=== PATIENT | male | born 2005 | race Caucasian/White ===

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

== ENCOUNTER 2025-05-10 06:31 | Emergency (ER) | payer OTHER, SELFPAY ==
[2025-05-10 06:34] VITALS: BP 118/88; PULSE 67; RESP 24; TEMP 36.4; O2SAT 100; BMI 23.6
--- OUTSIDE RECORDS SUMMARY | 2025-05-10 06:35 | XMS_ITS | Patient Health Record ---
Author Organization [facility] Address [address] [place] [address] Care Team Providers Care Lithographic Etcher Name Role Phone Case Miranda Primary Care Provider Allergies No Known Allergies Reason For Referral No Information Medications Medication SIG (Take, Route, Frequency, Duration) Notes Start Date End Date Status Zofran 4 MG Tablet 1 tablet Orally Q4-6 hours; Duration: 30 day(s) 10/11/2022 Active Promethazine HCl 25 MG Tablet 1 tablet as needed Orally every 12 hrs Active Pantoprazole Sodium 40 MG Tablet Delayed Release 1 tablet Orally Once a day; Duration: 90 days 09/17/2022 Active Meclizine HCl 25 MG Capsule as directed Orally Active Social History Tobacco Use: Social History Observation Description Date Details (start date - stop date) Never Smoker NA - NA Social History Drugs/Alcohol: Social Info Question Answer Notes Alcohol Screen (Audit-C) Did you have a drink containing alcohol in the past year? No Points 0 Interpretation Negative Tobacco Use: Social Info Question Answer Notes xTobacco Use/Smoking Are you a nonsmoker Problems Problem Type SNOMED Code ICD Code Onset Dates Problem Status W/U Status Risk Notes Problem CSG - Chronic superficial gastritis (871277650) Chronic superficial gastritis without bleeding (K29.30) Active confirmed Problem Nausea and vomiting (65934262) Nausea with vomiting, unspecified (R11.2) Active confirmed Problem Diarrhea (08120269) Diarrhea, unspecified (R19.7) Active confirmed Plan Of Treatment No Information Insurance Providers Payer Name Payer Address Payer Phone Subscriber Number Group Number Insured Name Patient Relationship to Insured Coverage Start Date Coverage End Date [place] Medicaid [address] [place] [address] [id number] Ailin Yesseniademar Self - patient is the insured Medical (General) History Medical History History ICD Code Fatigue R53.83 Pharyngitis J02.9 Neck pain M54.2 Back pain M54.9 Suicidal ideations R45.851 Abdominal pain R10.9 Depression F32.9
--- OUTSIDE RECORDS SUMMARY | 2025-05-10 06:35 | XMS_ITS | Clinical Summary ---
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 No 10/24/2022 Food Insecurity Answer Date Recorded Social/Environmental Concerns No concerns Transportation Needs Answer Date Record ed Social/Environmental Concerns No concerns Housing Stability Answer Date Recorded Social/Environmental Concerns No concerns Utility Needs Answer Date Recorded Social/Environmental Concerns No concerns Sex and Gender Information Value Date Recorded Sex Assigned at Not on file Legal Sex Male 1:44 PM CDT Gender Identity Not on file Sexual Orientation Not on file Last Filed Vital Signs Vital Sign Reading Time Taken Comments Blood Pressure 148/80 10/25/2022 3:00 PM CDT Pulse 68 10/25/2022 3:00 PM CDT Temperature 36.1 C (97 F) 10/25/2022 3:00 PM CDT Respiratory Rate 16 10/25/2022 3:00 PM CDT Oxygen Saturation 99% 10/25/2022 3:00 PM CDT Inhaled Oxygen Concentration - - Weight 63 kg (139 lb) 10/24/2022 9:42 PM CDT Height 172.7 cm (5' 8 ) 10/24/2022 9:42 PM CDT Body Mass Index 21.13 10/24/2022 9:42 PM CDT Body Mass Index Percentile 46.26% 10/24/2022 9:4 2 PM CDT Growth Chart: CDC (Boys, 2-2 0 Years) Plan of Treatment Health Maintenance Due Date Last Done Comments CHLAMYDIA SCREENING (ANNUAL) 11-24 YEARS 2016 HPV VACCINES (1 - Male 3-dose series) 2020 DTAP/TDAP/TD VACCINES (1 - Tdap) 2024 HEPATITIS B VACCINES (1 of 3 - 19+ 3-dose series) 07/05 INFLUENZA VACCINE (#1) 2025 Medical Devices Implanted Type Area Handbag Framer Device Identifier Shelf Expiration Date Model / Serial / Lot Sterilizer Machine Operator Ligamax Endo Multi Clip 5mm [id number] - [id number] Implanted:Qty: 1 on 10/25/2022 by Dino Ramos MD at [facility] Clip N/A: Abdomen [employer] [id number] 08/04/2027 [id number] / / [id number] Insurance [facility] MEDICAID [facility] MEDICAID Advance Directives For more information, please contact: [phone] * Full Code (Latest Code Status on File) Date Activated Date Inactivated Comments 10/25/2022 8:06 AM 10/25/2022 8:18 PM * Full Code Date Activated Date Inactivated Comments 10/24/2022 7:24 PM 10/25/2022 8:06 AM
--- NOTE | 2025-05-10 06:46 | W.ED.ABDPA2 ---
HPI - Abdominal Pain General: Chief Complaint: Abdominal Pain Stated Complaint: n/v and having trouble moving his hands Time Seen by Provider: 05/10/25 06:44 History of Present Illness: 19-year-old male presents emergency room complaining of abdominal pain that began around 3 AM. On arrival here he is complaining of cramping in his hands is complaining of some epigastric left upper quadrant abdominal pain. He has previously had a cholecystectomy. No hematemesis coffee-ground emesis medic easier melena. No dysuria urgency or frequency. No fever sweats or chills. Noted in the nurses notes patient had told the nurse that started at 2 AM nurse had noted that he referred to right lower quadrant pain however when asked him specifically to identify the pain he was indicated epigastric left upper quadrant. Associated Symptoms: Reports nausea and vomiting; Denies chills, coffee ground emesis, dysuria, fever(s), hematochezia, hematemesis and melena Related Data Previous Rx's ?Medication ?Instructions ?Recorded Crutches #1 ea 11/22/23 famotidine 40 mg tablet (Pepcid) 40 mg PO BID #10 tabs 03/29/24 lorazepam 2 mg tablet (Ativan) 2 mg buccal TID PRN nausea and 05/10/25 vomiting #10 tabs olanzapine 10 mg disintegrating 10 mg PO Q8H PRN nausea and 05/10/25 tablet vomiting #10 tabs Allergies Allergy/AdvReac Type Severity Reaction Status Date / Time No Known Allergies Allergy Verified 05/10/25 06:36 Review of Systems Const: Denies: fever(s) or chills Card: Denies: chest pain Resp: Denies: dyspnea GI: Reports: abdominal pain, nausea and vomiting; Denies: hematemesis, coffee ground emesis, hematochezia or melena : Denies: dysuria, urinary frequency or urinary urgency Musc: Denies: neck pain or back pain Skin/Breast: Denies: rash PFSH ED PFSH: Medical History Asthma Suicidal ideation Major depressive disorder Surgical History No pertinent past surgical history Social History Smoking and tobacco/nicotine status: never used tobacco/nicotine Second hand smoke exposure: Yes (rarely) Alcohol intake: never Substance/Drug Use: never Adopted: No Physical Exam Const: GENERAL APPEARANCE: cooperative ORIENTATION/CONSCIOUSNESS: Yes awake, Yes oriented to person, Yes oriented to place and Yes oriented to time HENMT: COMMON NORMALS: normocephalic, atraumatic and hearing grossly normal bilaterally HEAD & SCALP: normocephalic and atraumatic Resp: COMMON NORMALS: normal respiratory effort, No retractions, No use of accessory muscles and clear to auscultation bilaterally AUSCULTATION: clear to auscultation bilaterally Cardio: COMMON NORMALS: regular rate, regular rhythm and No murmurs present (Cardio) RATE: regular rate RHYTHM: regular rhythm GI: COMMON NORMALS: Soft to palpation and No hepatosplenomegaly present AUSCULTATION: Yes normoactive bowel sounds PALPATION: Yes Soft to palpation, No Tenderness to palpation present (GI), No Guarding due to palpation present (GI) and Yes No hepatosplenomegaly present OTHER: Focal exam edge of McBurney's point no guarding no rebound. No pain with percussion. Extremity: COMMON NORMALS: normal to inspection, capillary refill normal, no clubbing, cyanosis or edema, no calf tenderness and no pedal edema Neuro: SENSORIUM/ORIENTATION: Yes oriented to person, Yes oriented to place and Yes oriented to time Skin: COMMON NORMALS: no rashes or lesions noted GENERAL SKIN EXAM: no rashes or lesions noted Course Vital Signs: Vital signs: Vital Signs Temperature 97.5 F L 05/10/25 06:34 Pulse Rate 56 L 05/10/25 08:00 Respiratory Rate 24 H 05/10/25 06:34 Blood Pressure 103/60 05/10/25 08:00 Pulse Oximetry 99 05/10/25 08:00 Oxygen Delivery Me thod Room Air 05/10/25 06:34 MDM - Abdominal Pain Medical Decision Making ABG shows hyperventilation consistent with his clinical presentation. He has significant improvement with Ativan and Haldol as he was given in the ER. Patient admits to regular use of marijuana products clinically his presentation along with completely normal labs and benign abdominal exam is consistent with hyperemesis cannabinoid. Discussed with him and his family different strategies to manage symptoms including Ativan and olanzapine as needed. 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 Recommend that he not return to work today clear liquid diet and advance as tolerated decrease use of THC products or abstain. Medical Records I reviewed the patient's medical records. Lab Data I reviewed the patient's lab results. 05/10/25 06:40 05/10/25 06:40 Labs/Radiology: Laboratory Results WBC 4.74 10^3/uL (4.5-13.0) 10 06:40 RBC 4.72 10^6/uL (3.85-5.65) 05/10/25 06:40 Hgb 15.30 g/dL (13.2-15.6) 05/10/25 06:40 Hct 44.5 % (37-53) 05/10/25 06:40 MCV 94.3 fl (82-101) 05/10/25 06:40 MCH 32.4 pg (27-33) 05/10/25 06:40 MCHC 34.4 g/dL (30-55) 05/10/25 06:40 RDW 12.3 % (12.1-15.1) 05/10/25 06:40 Plt Count 266 10^3/cmm (157-399) 05/10/25 06:40 MPV 10.6 fL (7.4-10.4) H 05/10/25 06:40 Neut % (Auto) 59.7 % 05/10/25 06:40 Lymph % (Auto) 28.3 % 05/10/25 06:40 [place] % (Auto) 9.3 % 05/10/25 06:40 Eos % (Auto) 2.1 % 05/10/25 06:40 Baso % (Auto) 0.4 % 05/10/25 06:40 Neut # (Auto) 2.83 10^3/uL (1.8-8.0) 05/10/25 06:40 Lymph # (Auto) 1.3 10^3/uL (1.5-6.5) L 05/10/25 06:40 [place] # (Auto) 0.4 10^3/uL (0.2-0.9) 05/10/25 06:40 Eos # (Auto) 0.1 10^3/uL (0.0-0.8) 05/10/25 06:40 Baso # (Auto) 0.0 10^3/uL (0.0-0.1) 05/10/25 06:40 Nucleated RBC % (auto) 0 % 05/10/25 06:40 Nucleated RBCs # 0.0 /100WBC 05/10/25 06:40 Specimen Type Arterial 05/10/25 07:00 Sample Site Brachial, left 05/10/25 07:00 ABG pH 7.52 (7.35-7.45) H 05/10/25 07:00 ABG pCO2 26.1 mmHg (35-45) L 05/10/25 07:00 ABG pO2 72.8 mmHg (80.0-100.0) L 05/10/25 07:00 ABG PO2/FiO2 Ratio 346 05/10/25 07:00 ABG HCO3 21.2 mmol/L (22-26) L 05/10/25 07:00 ABG O2 Saturation 96.9 05/10/25 07:00 ABG Base Excess -0.1 mmol/L (-2.0-2.0) 05/10/25 07:00 Elijah Test N/a 05/10/25 07:00 A-a O2 Gradient 5.7 mmHg (5-10) 05/10/25 07:00 Hematocrit 46.7 % (42-52) 05/10/25 07:00 Hgb O2 Saturation 96.0 % (95-100) 05/10/25 07:00 Carboxyhemoglobin 0.9 %THgb (0.4-20.1) 05/10/25 07:00 Methemoglobin 0.0 % (0.4-1.5) L 05/10/25 07:00 Total Hemoglobin 15.2 g/dL (14-18) 05/10/25 07:00 Sodium 141.0 mmol/L (131-143) 05/10/25 07:00 Potassium 3.3 mmol/L (3.5-5.0) L 05/10/25 07:00 Glucose 114.0 mg/dL (70-115) 05/10/25 07:00 Ionized Calcium 1.2 mmol/L (1.1-1.4) 10/06/25 07:00 O2 Delivery Device Room air 05/10/25 07:00 FiO2 21.0 % 05/10/25 07:00 Liquor Bridge Operator Helper ID Amh 05/10/25 07:00 Sodium 139 mmol/L (136-145) 05/10/25 06:40 Potassium 3.7 mmol/L (3.5-5.1) 05/10/25 06:40 Chloride 102 mmol/L (98-107) 05/10/25 06:40 Carbon Dioxide 22 mmol/L (22-29) 05/10/25 06:40 Anion Gap 18.7 (5-19) 05/10/25 06:40 BUN 10 mg/dL (6-20) 05/10/25 06:40 Creatinine 0.8 mg/dL (0.7-1.2) 05/10/25 06:40 GFR Calculation 124.5 mL/min (90-130) 05/10/25 06:40 Glucose 108 mg/dL (65-115) 05/10/25 06:40 Calculated Osmolality 288 mOsm/kg (285-295) 05/10/25 06:40 Calcium 9.6 mg/dL (8.5-10.5) 05/10/25 06:40 Total Bilirubin 1.1 mg/dL (0.15-1.2) 05/10/25 06:40 AST 31 U/L (0-40) 05/10/25 06:40 ALT 24 U/L (0-41) 05/10/25 06:40 Alkaline Phosphatase 81 U/L (40-130) 05/10/25 06:40 Total Protein 7.4 g/dL (6.6-8.7) 05/10/25 06:40 Albumin 4.9 g/dL (3.5-5.2) 05/10/25 06:40 Globulin 2.5 g/dL (1.3-4.6) 05/10/25 06:40 Lipase 23 U/L (13-60) 05/10/25 06:40 Urine Color Yellow (Yellow) 05/10/25 06:40 Urine Appearance Clear (CLEAR) 05/10/25 06:40 Urine pH 8 (5-7) A 05/10/25 06:40 Ur Specific [place] 1.010 (1.005-1.030) 05/10/25 06:40 Urine Protein Neg (Negative) 05/10/25 06:40 Urine Glucose (UA) Norm (Normal) 05/10/25 06:40 Urine Ketones Negative (Negative) 05/10/25 06:40 Urine Blood Neg (Negative) 05/10/25 06:40 Urine Nitrate Negative (Negative) 05/10/25 06:40 Urine Bilirubin Neg (Negative) 05/10/25 06:40 Urine Urobilinogen Norm mg/dL (Negative) 05/10/25 06:40 Ur Leukocyte Esterase Negative (Negative) 05/10/25 06:40 Amorphous Sediment Not Reportable 05/10/25 06:40 No radiology studies performed this visit Discharge Plan Discharge Patient Disposition: Home Clinical Impression: Cannabinoid hyperemesis syndrome, Hyperventilation Condition: Stable Prescriptions: New lorazepam [Ativan] 2 mg tablet 2 mg buccal TID PRN (Reason: nausea and vomiting) Qty: 10 0RF olanzapine 10 mg tablet,disintegrating 10 mg PO Q8H PRN (Reason: nausea and vomiting) Qty: 10 0RF No Action (DME) Crutches See Rx Instructions .Route .MEDSUPPLY Qty: 1 0RF Rx Instructions: As directed famotidine [Pepcid] 40 mg tablet 40 mg PO BID Qty: 10 0RF Discharge Orders: Discharge ED (Routine); Ordered 05/10/25 Ordered By: Javier Mendez Referrals: Tyler Miranda MD [Primary Care Provider, Internal Medicine] Discharge Diet: Clear Liquid Discharge Activity: Increase activity as tolerated Patient Instructions: Opioid Safety, Pain Management, Patient Portal & Vita Instructions Activity Restrictions/Additional Instructions: Thank you for choosing [facility] for your healthcare needs today. It is very important that you follow up as instructed or that you return to the Emergency Department should you have concerns or if your condition changes or worsens in any way. Emergency department visits are focused on emergent conditions, in some cases you may require further evaluation on an outpatient basis. You were seen in the emergency room with complaints of cramping in your hands as well as nausea and vomiting. Blood gas showed that you had been hyperventilating which is consistent with your clinical presentation when you arrived. Your laboratory tests were normal your abdominal exam was not suggestive of any acute surgical problems. Based on your history and your response to medications given suspect a lot of the symptoms you had this morning were due to regular use of THC products. Recommend that you cut back or stop abstain completely. Vape pens and edible THC products tend to be more likely to cause the symptoms. You can use Ativan and olanzapine 1 every 8 hours as needed if you have recurrent nausea or vomiting. Recommend that you follow a clear liquid diet today then advance as you are able to beginning tomorrow. You were given Ativan IV today you should not work today and can can return tomorrow. Please note that you should not use any heavy equipment for at least 8 to 12 hours if you use any of the oral Ativan that you were prescribed. (Please note that included in your discharge packet is information concerning opioid safety and pain management. This information is given to all patients were discharged from the ER regardless of their discharge diagnosis or the medicines they usually take or are prescribed.) Stand Alone Forms: Work/School Release Print Language: Divehi Coding Level of Care Code ED Electrical Continuity Inspector for Renee Ashford
[2025-05-10 06:50] LABS: Add Urine Microscopic? NO
[2025-05-10 06:51] VITALS: BP 118/88
[2025-05-10] MEDS: LORazepam 1 MG/0.5 ML injection 2 MG IVP (06:52)
[2025-05-10] MEDS: haloperidol inj 5 mg/mL INJ 1 mL 2.5 MG IVP (06:53)
[2025-05-10 07:12] LABS: ABG PCO2 26.1 mmHg (35-45); ABG PH Result 7.52 (7.35-7.45); Alveolar-Arterial Oxygen Gradi 5.7 mmHg (5-10); Arterial Blood Gas Hematocrit 46.7 % (42-52); Blood Gas Operator Identificat AMH; Blood Gas Sample Site Brachial, left; Blood Gas Sample Type Arterial; Carboxyhemoglobin 0.9 %THgb (0.4-20.1); Glucose Level-ABG 114.0 mg/dL (70-115); HCO3 ABG 21.2 mmol/L (22-26); Ionized Calcium Level - ABG 1.2 mmol/L (1.1-1.4); Methemoglobin 0.0 % (0.4-1.5); Oxygen Saturation ABG 96.9; PO2 ABG 72.8 mmHg (80.0-100.0); PO2 FiO2 Ratio Arterial Blood 346; Potassium Level - ABG 3.3 mmol/L (3.5-5.0); Sodium Level - ABG 141.0 mmol/L (131-143)
[2025-05-10 07:13] LABS: Hematocrit 44.5 % (37-53); Hemoglobin 15.30 g/dL (13.2-15.6); Mean Corpuscular HGB Conc 34.4 g/dL (30-55); Mean Corpuscular Hemoglobin 32.4 pg (27-33); Mean Corpuscular Volume 94.3 fl (82-101); Nucleated Red Blood Cells % 0 %; Platelet Count 266 10^3/cmm (157-399); Red Blood Count 4.72 10^6/uL (3.85-5.65); White Blood Count 4.74 10^3/uL (4.5-13.0)
[2025-05-10 07:20] LABS: Alanine Aminotransferase 24 U/L (0-41); Albumin Level 4.9 g/dL (3.5-5.2); Alkaline Phosphatase 81 U/L (40-130); Anion Gap 18.7 (5-19); Aspartate Amino Transferase 31 U/L (0-40); Blood Urea Nitrogen 10 mg/dL (6-20); Calcium 9.6 mg/dL (8.5-10.5); Carbon Dioxide 22 mmol/L (22-29); Chloride 102 mmol/L (98-107); Creatinine Clr Calc Pharmacy 154.8993; Globulin 2.5 g/dL (1.3-4.6); Glucose 108 mg/dL (65-115); Lipase 23 U/L (13-60); Osmolality Calculated 288 mOsm/kg (285-295); Potassium 3.7 mmol/L (3.5-5.1); Sodium 139 mmol/L (136-145); Total Protein 7.4 g/dL (6.6-8.7)
[2025-05-10 07:30] LABS: Charge for UA Resulting for Rev; Glucose Urine UA Norm (Normal); Nitrate Urine Negative (Negative); Specific Gravity, Urine 1.010 (1.005-1.030)
[2025-05-10 08:00] VITALS: BP 103/60; PULSE 56; O2SAT 99
== END 2025-05-10 08:37 | disposition home or self-care (01) ==
PROVIDERS: Emergency Provider Family Medicine; PCP Internal Medicine
DX: R11.2 Nausea with vomiting, unspecified (principal); R06.4 Hyperventilation
CPT/HCPCS: 36600; 80051; 80053; 81003; 82330; 82805; 83690; 85025; 96361; 96374; 96375; 99284; J1630; J2060; J7030